=== PATIENT | male | born 1985 | race African-American/Black ===

== ENCOUNTER 2018-03-16 16:47 | Inpatient (IN) ==
[2018-03-16] MEDS ORDERED: ONDANSETRON 4 MG/2 ML VIAL IV STA (17:15)
[2018-03-16] MEDS ORDERED: ALUM/MAG/SIMETH/LIDO VISC 1:1 30 ML BOTTLE PO STA (17:15)
[2018-03-16] MEDS ORDERED: PANTOPRAZOLE 40 MG VIAL IV STA (17:15)
[2018-03-16 18:12] LABS: Basophils # 0.1 10*3/uL (0.0-0.2); Eosinophils # 0.3 10*3/uL (0.0-0.87); Eosinophils % 2.2 % (0.00-10.9); Hematocrit 40.8 VOL% (42.0-52.0); Hemoglobin 13.4 GM/DL (14.0-18.0); Immature Granulocytes % 0.6 %; Immature Granulocytes Absolute 0.08 #; Lymphocytes # 4.5 10*3/uL (1.4-4.0); Mean Corpuscular HGB Conc 32.8 GM/DL (32-36); Mean Corpuscular Hemoglobin 31 PG (27-34); Mean Platelet Volume 10.4 FL (9.6-12.0); Monocytes # 0.6 10*3/uL (0.11-0.8); Monocytes % 4.8 % (1.7-12.7); NRBC # 0.02 10*3/uL; Neutrophils # 7.2 10*3/uL (1.4-7.4); Neutrophils % 56.4 % (38.7-73.9); Platelet Count 273 T/CUMM (130-400); Red Blood Count 4.34 MC/CUMM (3.8-5.5); Red Cell Distribution Width 16.4 % (9.3-17.3); White Blood Count 12.8 T/CUMM (4-12)
[2018-03-16 18:36] LABS: Albumin 3.5 G/DL (3.4-5.0); Calcium 9.2 MG/DL (8.5-10.1); Osmolality,Calculated 282.3 MOS/KG (273-304); Potassium 4.3 MMOL/L (3.5-5.1); Total Protein 7.1 G/DL (6.4-8.3)
[2018-03-16] MEDS ORDERED: traZODone 50 MG TABLET PO PRN (19:04)
[2018-03-16] MEDS ORDERED: ONDANSETRON 4 MG/2 ML VIAL IV PRN (19:04)
[2018-03-16] MEDS ORDERED: ACETAMINOPHEN 325 MG TABLET PO PRN (19:04)
[2018-03-16] MEDS ORDERED: NICOTINE 21 MG/24 HR PATCH TRANSDERM PRN (19:04)
[2018-03-16] MEDS ORDERED: ENOXAPARIN 30 MG/0.3 ML SYRINGE SUBCUT SCH (19:30)
[2018-03-16] MEDS: MORPHINE 4 MG/1 ML VIAL IV PRN ×2 (20:30→23:25)
[2018-03-16] MEDS: SODIUM CHLORIDE 0.9% 1,000 ML IV SCH (20:33)
[2018-03-16] MEDS ORDERED: PANTOPRAZOLE 40 MG TABLET PO SCH (21:00)
[2018-03-16] MEDS ORDERED: HYDROmorphone 2 MG/1 ML VIAL IV ONE (22:14)
[2018-03-16] MEDS: PANTOPRAZOLE 40 MG VIAL IV SCH (22:31)
[2018-03-17] MEDS: MORPHINE 4 MG/1 ML VIAL IV PRN ×5 (03:29→20:27)
[2018-03-17 05:12] LABS: Basophils # 0.1 10*3/uL (0.0-0.2); Basophils % 0.6 % (0.0-0.8); Eosinophils # 0.2 10*3/uL (0.0-0.87); Eosinophils % 1.8 % (0.00-10.9); Hematocrit 37.6 VOL% (42.0-52.0); Hemoglobin 12.7 GM/DL (14.0-18.0); Immature Granulocytes % 0.5 %; Immature Granulocytes Absolute 0.06 #; Lymphocytes # 4.5 10*3/uL (1.4-4.0); Lymphocytes % 39.5 % (21.2-54.2); Mean Corpuscular HGB Conc 33.8 GM/DL (32-36); Mean Corpuscular Hemoglobin 32 PG (27-34); Mean Corpuscular Volume 93.5 FL (87-102); Mean Platelet Volume 10.9 FL (9.6-12.0); Monocytes # 0.6 10*3/uL (0.11-0.8); NRBC # 0.02 10*3/uL; Neutrophils % 52.6 % (38.7-73.9); Platelet Count 246 T/CUMM (130-400); Red Blood Count 4.02 MC/CUMM (3.8-5.5); Red Cell Distribution Width 16.5 % (9.3-17.3); White Blood Count 11.5 T/CUMM (4-12)
[2018-03-17 05:54] LABS: Calcium 8.6 MG/DL (8.5-10.1); Potassium 4.8 MMOL/L (3.5-5.1)
[2018-03-17] MEDS: PANTOPRAZOLE 40 MG VIAL IV SCH ×2 (08:06→20:29)
[2018-03-17] MEDS: LOSARTAN 25 MG TABLET PO SCH (08:07)
[2018-03-17] MEDS: METOPROLOL TARTRATE 50 MG TABLET PO SCH (08:08)
[2018-03-17] MEDS ORDERED: FUROSEMIDE 40 MG TABLET PO SCH (09:00)
[2018-03-17] MEDS: SODIUM CHLORIDE 0.9% 1,000 ML IV SCH (10:10)
[2018-03-17] MEDS: MONTELUKAST 10 MG TABLET PO SCH (10:15)
[2018-03-17] MEDS: IPRATROPIUM 500 MCG/2.5 ML NEB RESP TX SCH ×3 (10:32→20:05)
[2018-03-17] MEDS: MEROPENEM 1,000 MG in SODIUM CHLORIDE 0.9% 100 ML IV SCH ×2 (11:35→19:30)
[2018-03-17 12:24] LABS: Hepatitis A Ab IgM Quant 0.06 Index; Hepatitis A Ab IgM Result Negative (Negative); Hepatitis B Core IgM Quant 0.08 Index; Hepatitis B Core IgM Result Negative (Negative); Hepatitis B Surface Ag Result Negative (Negative); Hepatitis C Virus Ab Result Negative (Negative)
[2018-03-17 13:41] LABS: % Iron Saturation 30.4 % (18-50); Ferritin 224.4 ng/ml (26-388)
[2018-03-17] MEDS ORDERED: HYDROmorphone 2 MG/1 ML VIAL IV ONE (22:12)
[2018-03-18] MEDS: IPRATROPIUM 500 MCG/2.5 ML NEB RESP TX SCH ×4 (00:36→18:55)
[2018-03-18 02:35] LABS: Barbiturates Screen,Urine Negative (Negative); Benzodiazepines Screen,Urine Negative (Negative); Cannabinoid Screen,Urine Negative (Negative); Opiate Screen,Urine Positive (Negative); Phencyclidine Screen,Urine Negative (Negative)
[2018-03-18] MEDS: MEROPENEM 1,000 MG in SODIUM CHLORIDE 0.9% 100 ML IV SCH ×3 (03:29→18:22)
[2018-03-18] MEDS: MORPHINE 4 MG/1 ML VIAL IV PRN ×4 (03:31→21:08)
[2018-03-18] MEDS: SODIUM CHLORIDE 0.9% 1,000 ML IV SCH ×2 (03:31→14:17)
[2018-03-18 05:55] LABS: Calcium 8.7 MG/DL (8.5-10.1); Osmolality,Calculated 283.1 MOS/KG (273-304); Potassium 4.4 MMOL/L (3.5-5.1)
[2018-03-18] MEDS: MONTELUKAST 10 MG TABLET PO SCH (08:55)
[2018-03-18] MEDS: LOSARTAN 25 MG TABLET PO SCH (08:55)
[2018-03-18] MEDS: METOPROLOL TARTRATE 50 MG TABLET PO SCH (08:55)
[2018-03-18 10:54] LABS: Basophils # 0.1 10*3/uL (0.0-0.2); Basophils % 0.6 % (0.0-0.8); Eosinophils # 0.2 10*3/uL (0.0-0.87); Eosinophils % 1.7 % (0.00-10.9); Hematocrit 37.4 VOL% (42.0-52.0); Hemoglobin 12.5 GM/DL (14.0-18.0); Immature Granulocytes % 0.5 %; Immature Granulocytes Absolute 0.06 #; Lymphocytes % 24.2 % (21.2-54.2); Mean Corpuscular HGB Conc 33.4 GM/DL (32-36); Mean Corpuscular Hemoglobin 31 PG (27-34); Mean Corpuscular Volume 93.3 FL (87-102); Mean Platelet Volume 11.1 FL (9.6-12.0); Monocytes # 0.6 10*3/uL (0.11-0.8); Monocytes % 4.5 % (1.7-12.7); NRBC # 0.02 10*3/uL; Neutrophils # 8.4 10*3/uL (1.4-7.4); Neutrophils % 68.5 % (38.7-73.9); Platelet Count 218 T/CUMM (130-400); Red Blood Count 4.01 MC/CUMM (3.8-5.5); Red Cell Distribution Width 16.5 % (9.3-17.3); White Blood Count 12.3 T/CUMM (4-12)
[2018-03-18] MEDS: PANTOPRAZOLE 40 MG VIAL IV SCH ×2 (11:04→21:08)
[2018-03-18] MEDS ORDERED: PROPOFOL 200 MG/20 ML VIAL IV ONE (11:59)
[2018-03-18] MEDS ORDERED: ETOMIDATE 20 MG/10 ML VIAL IV ONE (11:59)
[2018-03-18] MEDS ORDERED: LIDOCAINE 1% 5 ML VIAL ONE (11:59)
[2018-03-18] MEDS ORDERED: ALBUTEROL 2.5 MG/3 ML NEB RESP TX PRN (21:34)
[2018-03-18] MEDS: HYDROmorphone 2 MG/1 ML VIAL IV PRN (22:03)
[2018-03-19] MEDS: IPRATROPIUM 500 MCG/2.5 ML NEB RESP TX SCH ×4 (00:38→19:55)
[2018-03-19] MEDS: HYDROmorphone 2 MG/1 ML VIAL IV PRN ×5 (02:20→20:41)
[2018-03-19] MEDS: MEROPENEM 1,000 MG in SODIUM CHLORIDE 0.9% 100 ML IV SCH ×3 (03:33→18:17)
[2018-03-19] MEDS: SODIUM CHLORIDE 0.9% 1,000 ML IV SCH ×2 (05:20→20:42)
[2018-03-19 05:58] LABS: Basophils # 0.1 10*3/uL (0.0-0.2); Basophils % 0.6 % (0.0-0.8); Eosinophils # 0.2 10*3/uL (0.0-0.87); Eosinophils % 1.6 % (0.00-10.9); Hematocrit 37.5 VOL% (42.0-52.0); Hemoglobin 12.3 GM/DL (14.0-18.0); Immature Granulocytes % 0.6 %; Immature Granulocytes Absolute 0.08 #; Lymphocytes # 3.5 10*3/uL (1.4-4.0); Lymphocytes % 25.5 % (21.2-54.2); Mean Corpuscular HGB Conc 32.8 GM/DL (32-36); Mean Corpuscular Hemoglobin 31 PG (27-34); Mean Corpuscular Volume 94.5 FL (87-102); Mean Platelet Volume 10.9 FL (9.6-12.0); Monocytes # 0.6 10*3/uL (0.11-0.8); Monocytes % 4.4 % (1.7-12.7); Neutrophils # 9.2 10*3/uL (1.4-7.4); Neutrophils % 67.3 % (38.7-73.9); Platelet Count 217 T/CUMM (130-400); Red Blood Count 3.97 MC/CUMM (3.8-5.5); Red Cell Distribution Width 16.7 % (9.3-17.3); White Blood Count 13.6 T/CUMM (4-12)
[2018-03-19 06:37] LABS: Albumin 3.1 G/DL (3.4-5.0); Bilirubin,Total 1.3 MG/DL (0.2-1.0); Calcium 8.5 MG/DL (8.5-10.1); Osmolality,Calculated 285.8 MOS/KG (273-304); Potassium 4.5 MMOL/L (3.5-5.1); Total Protein 6.2 G/DL (6.4-8.3)
[2018-03-19] MEDS: LOSARTAN 25 MG TABLET PO SCH (08:39)
[2018-03-19] MEDS: METOPROLOL TARTRATE 50 MG TABLET PO SCH (08:39)
[2018-03-19] MEDS: MONTELUKAST 10 MG TABLET PO SCH (08:39)
[2018-03-19] MEDS: PANTOPRAZOLE 40 MG VIAL IV SCH ×2 (08:41→20:44)
[2018-03-19] MEDS ORDERED: MORPHINE 4 MG/1 ML VIAL IV PRN (09:37)
[2018-03-20] MEDS: IPRATROPIUM 500 MCG/2.5 ML NEB RESP TX SCH ×2 (01:13→07:29)
[2018-03-20] MEDS: HYDROmorphone 2 MG/1 ML VIAL IV PRN ×2 (01:43→05:44)
[2018-03-20] MEDS: MEROPENEM 1,000 MG in SODIUM CHLORIDE 0.9% 100 ML IV SCH ×2 (03:07→10:25)
[2018-03-20 04:43] LABS: Basophils # 0.1 10*3/uL (0.0-0.2); Basophils % 0.7 % (0.0-0.8); Eosinophils # 0.2 10*3/uL (0.0-0.87); Eosinophils % 2.1 % (0.00-10.9); Hematocrit 36.5 VOL% (42.0-52.0); Hemoglobin 11.7 GM/DL (14.0-18.0); Immature Granulocytes % 0.4 %; Immature Granulocytes Absolute 0.05 #; Lymphocytes # 3.3 10*3/uL (1.4-4.0); Lymphocytes % 28.8 % (21.2-54.2); Mean Corpuscular HGB Conc 32.1 GM/DL (32-36); Mean Corpuscular Hemoglobin 31 PG (27-34); Mean Corpuscular Volume 96.8 FL (87-102); Mean Platelet Volume 11.4 FL (9.6-12.0); Monocytes # 0.6 10*3/uL (0.11-0.8); Monocytes % 5.3 % (1.7-12.7); NRBC # 0.02 10*3/uL; Neutrophils # 7.2 10*3/uL (1.4-7.4); Neutrophils % 62.7 % (38.7-73.9); Platelet Count 209 T/CUMM (130-400); Red Blood Count 3.77 MC/CUMM (3.8-5.5); Red Cell Distribution Width 16.8 % (9.3-17.3); White Blood Count 11.5 T/CUMM (4-12)
[2018-03-20 05:14] LABS: Albumin 3.1 G/DL (3.4-5.0); Bilirubin,Total 1.8 MG/DL (0.2-1.0); Calcium 8.7 MG/DL (8.5-10.1); Osmolality,Calculated 284.8 MOS/KG (273-304); Potassium 4.2 MMOL/L (3.5-5.1); Total Protein 6.2 G/DL (6.4-8.3)
[2018-03-20 07:49] VITALS: BP 112/92
[2018-03-20] MEDS ORDERED: FUROSEMIDE 40 MG/4 ML VIAL IV ONE (08:15)
[2018-03-20] MEDS ORDERED: FLUCONAZOLE INJ 200 MG in PREMIX 1 EACH IV SCH (08:30)
[2018-03-20] MEDS: METOPROLOL TARTRATE 50 MG TABLET PO SCH (08:41)
[2018-03-20] MEDS: PANTOPRAZOLE 40 MG VIAL IV SCH (08:41)
[2018-03-20] MEDS: MONTELUKAST 10 MG TABLET PO SCH (08:41)
[2018-03-20] MEDS: LOSARTAN 25 MG TABLET PO SCH (08:41)
== END 2018-03-20 10:45 | disposition home or self-care (01) | DRG 241 ==
LOC: N.ED 16:47 → N.EDINP 19:04 → N.3E 19:54
PROVIDERS: ADMIT Internal Medicine Geriatric Medicine; ATTEND Internal Medicine Geriatric Medicine

== ENCOUNTER 2018-04-06 13:21 | Inpatient (IN) ==
[2018-04-06] MEDS ORDERED: ONDANSETRON 4 MG/2 ML VIAL IV STA (14:23)
[2018-04-06] MEDS ORDERED: PANTOPRAZOLE 40 MG VIAL IV STA (14:23)
[2018-04-06] MEDS ORDERED: SODIUM CHLORIDE 0.9% 1,000 ML IV STA (14:23)
[2018-04-06] MEDS ORDERED: METOCLOPRAMIDE 10 MG/2 ML VIAL IV STA (14:23)
[2018-04-06] MEDS ORDERED: ONDANSETRON 4 MG/2 ML VIAL ONE (14:35)
[2018-04-06] MEDS ORDERED: PANTOPRAZOLE 40 MG VIAL IV ONE (14:35)
[2018-04-06] MEDS ORDERED: METOCLOPRAMIDE 10 MG/2 ML VIAL ONE (14:35)
[2018-04-06 14:42] LABS: Basophils # 0.2 10*3/uL (0.0-0.2); Basophils % 1.6 % (0.0-0.8); Eosinophils # 0.4 10*3/uL (0.0-0.87); Hematocrit 45.5 VOL% (42.0-52.0); Hemoglobin 14.7 GM/DL (14.0-18.0); Immature Granulocytes % 0.4 %; Immature Granulocytes Absolute 0.04 #; Lymphocytes # 4.8 10*3/uL (1.4-4.0); Lymphocytes % 44.9 % (21.2-54.2); Mean Corpuscular HGB Conc 32.3 GM/DL (32-36); Mean Corpuscular Hemoglobin 30 PG (27-34); Mean Corpuscular Volume 92.3 FL (87-102); Mean Platelet Volume 11.8 FL (9.6-12.0); Monocytes # 0.5 10*3/uL (0.11-0.8); Monocytes % 4.6 % (1.7-12.7); Neutrophils # 4.7 10*3/uL (1.4-7.4); Neutrophils % 44.5 % (38.7-73.9); Platelet Count 257 T/CUMM (130-400); Red Blood Count 4.93 MC/CUMM (3.8-5.5); Red Cell Distribution Width 15.9 % (9.3-17.3); White Blood Count 10.6 T/CUMM (4-12)
[2018-04-06 15:11] LABS: Albumin 3.9 G/DL (3.4-5.0); Bilirubin,Total 2.7 MG/DL (0.2-1.0); Calcium 9.1 MG/DL (8.5-10.1); Osmolality,Calculated 281.4 MOS/KG (273-304); Potassium 3.8 MMOL/L (3.5-5.1)
[2018-04-06] MEDS: HYDROmorphone 2 MG/1 ML VIAL IV PRN ×2 (17:14→21:02)
[2018-04-06] MEDS: LACTOBACILLUS ACIDOPHILUS/BULGARICUS CAPLET PO SCH (17:20)
[2018-04-06] MEDS: DICYCLOMINE 10 MG CAPSULE PO SCH (21:02)
[2018-04-06] MEDS: PANTOPRAZOLE 40 MG TABLET PO SCH (21:02)
[2018-04-06] MEDS: ONDANSETRON 4 MG/2 ML VIAL IV PRN (21:12)
[2018-04-07] MEDS: HYDROmorphone 2 MG/1 ML VIAL IV PRN ×5 (01:09→23:18)
[2018-04-07 03:57] LABS: Basophils # 0.1 10*3/uL (0.0-0.2); Eosinophils # 0.2 10*3/uL (0.0-0.87); Eosinophils % 2.4 % (0.00-10.9); Hematocrit 39.7 VOL% (42.0-52.0); Hemoglobin 12.7 GM/DL (14.0-18.0); Immature Granulocytes % 0.2 %; Immature Granulocytes Absolute 0.02 #; Lymphocytes # 4.6 10*3/uL (1.4-4.0); Lymphocytes % 49.1 % (21.2-54.2); Mean Corpuscular Hemoglobin 30 PG (27-34); Mean Corpuscular Volume 92.3 FL (87-102); Mean Platelet Volume 12.2 FL (9.6-12.0); Monocytes # 0.5 10*3/uL (0.11-0.8); Neutrophils % 42.3 % (38.7-73.9); Platelet Count 230 T/CUMM (130-400); Red Cell Distribution Width 15.8 % (9.3-17.3); White Blood Count 9.3 T/CUMM (4-12)
[2018-04-07 04:28] LABS: Albumin 3.4 G/DL (3.4-5.0); Calcium 8.6 MG/DL (8.5-10.1); Osmolality,Calculated 278.5 MOS/KG (273-304); Potassium 4.5 MMOL/L (3.5-5.1); Total Protein 6.6 G/DL (6.4-8.3)
[2018-04-07] MEDS: METOPROLOL TARTRATE 50 MG TABLET PO SCH (08:42)
[2018-04-07] MEDS: ONDANSETRON 4 MG/2 ML VIAL IV PRN ×2 (08:44→14:26)
[2018-04-07] MEDS: LACTOBACILLUS ACIDOPHILUS/BULGARICUS CAPLET PO SCH ×2 (08:49→14:31)
[2018-04-07] MEDS: DICYCLOMINE 10 MG CAPSULE PO SCH ×3 (08:49→20:21)
[2018-04-07] MEDS: PANTOPRAZOLE 40 MG TABLET PO SCH ×3 (08:50→20:21)
[2018-04-07] MEDS: SODIUM CHLORIDE 0.9% 1,000 ML IV SCH ×2 (13:13→23:18)
[2018-04-07 14:10] LABS: Hepatitis A Ab IgM Quant 0.11 Index; Hepatitis A Ab IgM Result Negative (Negative); Hepatitis B Core IgM Quant < 0.05 Index; Hepatitis B Core IgM Result Negative (Negative); Hepatitis B Surface Ag Quant < 0.10 Index; Hepatitis B Surface Ag Result Negative (Negative); Hepatitis C Virus Ab Quant 0.13 Index; Hepatitis C Virus Ab Result Negative (Negative)
[2018-04-07 20:16] LABS: Apearance,Urine Slightly Hazy (Clear); Bilirubin,Urine Negative (Negative); Blood, Urine Negative (Negative); Glucose,Urine (UA) Negative (Negative); Hyaline Casts,Urine 210 /LPF (0-3); Ketones,Urine Negative (Negative); Mucus,Urine Many /LPF (Occasional); Nitrite,Urine Negative (Negative); Protein,Urine 30 MG/DL; Squamous Epithelial Cell,Urine Occasional /HPF (0-10); Urine Color Amber (Yellow); WBC,Urine 5 /HPF (0-6)
[2018-04-08] MEDS: ONDANSETRON 4 MG/2 ML VIAL IV PRN ×5 (05:44→23:48)
[2018-04-08] MEDS: HYDROmorphone 2 MG/1 ML VIAL IV PRN ×5 (05:46→23:47)
[2018-04-08] MEDS: SODIUM CHLORIDE 0.9% 1,000 ML IV SCH ×2 (06:05→16:27)
[2018-04-08 09:47] LABS: Basophils # 0.1 10*3/uL (0.0-0.2); Basophils % 1.1 % (0.0-0.8); Eosinophils # 0.3 10*3/uL (0.0-0.87); Eosinophils % 2.4 % (0.00-10.9); Hematocrit 41.4 VOL% (42.0-52.0); Hemoglobin 12.7 GM/DL (14.0-18.0); Immature Granulocytes % 0.2 %; Immature Granulocytes Absolute 0.02 #; Lymphocytes # 5.5 10*3/uL (1.4-4.0); Lymphocytes % 49.9 % (21.2-54.2); Mean Corpuscular HGB Conc 30.7 GM/DL (32-36); Mean Corpuscular Hemoglobin 29 PG (27-34); Mean Corpuscular Volume 95.4 FL (87-102); Mean Platelet Volume 11.6 FL (9.6-12.0); Monocytes # 0.7 10*3/uL (0.11-0.8); Monocytes % 6.5 % (1.7-12.7); NRBC # 0.03 10*3/uL; Neutrophils # 4.4 10*3/uL (1.4-7.4); Neutrophils % 39.9 % (38.7-73.9); Platelet Count 216 T/CUMM (130-400); Red Blood Count 4.34 MC/CUMM (3.8-5.5); Red Cell Distribution Width 15.9 % (9.3-17.3); White Blood Count 11.1 T/CUMM (4-12)
[2018-04-08] MEDS: PANTOPRAZOLE 40 MG TABLET PO SCH ×2 (10:08→21:17)
[2018-04-08] MEDS: METOPROLOL TARTRATE 50 MG TABLET PO SCH (10:08)
[2018-04-08] MEDS: LACTOBACILLUS ACIDOPHILUS/BULGARICUS CAPLET PO SCH (10:08)
[2018-04-08] MEDS: DICYCLOMINE 10 MG CAPSULE PO SCH ×3 (10:08→21:17)
[2018-04-08 10:16] LABS: Albumin 3.2 G/DL (3.4-5.0); Bilirubin,Total 2.3 MG/DL (0.2-1.0); Calcium 8.4 MG/DL (8.5-10.1); Osmolality,Calculated 280.5 MOS/KG (273-304); Potassium 4.2 MMOL/L (3.5-5.1); Total Protein 6.7 G/DL (6.4-8.3)
[2018-04-08] MEDS: SUCRALFATE 1 GM TABLET PO SCH ×2 (17:34→21:17)
[2018-04-09] MEDS: SODIUM CHLORIDE 0.9% 1,000 ML IV SCH ×3 (02:49→15:20)
[2018-04-09 06:07] LABS: Basophils # 0.1 10*3/uL (0.0-0.2); Basophils % 1.2 % (0.0-0.8); Eosinophils # 0.3 10*3/uL (0.0-0.87); Eosinophils % 2.5 % (0.00-10.9); Hematocrit 38.3 VOL% (42.0-52.0); Hemoglobin 12.3 GM/DL (14.0-18.0); Immature Granulocytes % 0.5 %; Immature Granulocytes Absolute 0.05 #; Lymphocytes # 4.5 10*3/uL (1.4-4.0); Lymphocytes % 42.1 % (21.2-54.2); Mean Corpuscular HGB Conc 32.1 GM/DL (32-36); Mean Corpuscular Hemoglobin 30 PG (27-34); Mean Corpuscular Volume 93.9 FL (87-102); Mean Platelet Volume 11.9 FL (9.6-12.0); Monocytes # 0.8 10*3/uL (0.11-0.8); Monocytes % 7.8 % (1.7-12.7); NRBC # 0.04 10*3/uL; Neutrophils # 4.9 10*3/uL (1.4-7.4); Neutrophils % 45.9 % (38.7-73.9); Platelet Count 211 T/CUMM (130-400); Red Blood Count 4.08 MC/CUMM (3.8-5.5); Red Cell Distribution Width 15.8 % (9.3-17.3); White Blood Count 10.7 T/CUMM (4-12)
[2018-04-09 06:30] LABS: Calcium 8.2 MG/DL (8.5-10.1); Osmolality,Calculated 277.8 MOS/KG (273-304); Potassium 4.4 MMOL/L (3.5-5.1); Total Protein 6.2 G/DL (6.4-8.3)
[2018-04-09] MEDS: HYDROmorphone 2 MG/1 ML VIAL IV PRN ×4 (06:39→21:21)
[2018-04-09] MEDS: ONDANSETRON 4 MG/2 ML VIAL IV PRN ×4 (06:40→21:21)
[2018-04-09 08:13] LABS: Risk Ratio 5.92
[2018-04-09 08:56] LABS: HIV Antigen/Antibody Result Nonreactive (Nonreactive)
[2018-04-09] MEDS: METOPROLOL TARTRATE 50 MG TABLET PO SCH (10:00)
[2018-04-09] MEDS: LACTOBACILLUS ACIDOPHILUS/BULGARICUS CAPLET PO SCH (10:00)
[2018-04-09] MEDS: SUCRALFATE 1 GM TABLET PO SCH ×4 (10:00→21:23)
[2018-04-09] MEDS: DICYCLOMINE 10 MG CAPSULE PO SCH ×3 (10:00→21:23)
[2018-04-09] MEDS: PANTOPRAZOLE 40 MG TABLET PO SCH (10:00)
[2018-04-09 12:00] LABS: % Iron Saturation 7.4 % (18-50); Ferritin 62.1 ng/ml (26-388)
[2018-04-09 13:15] LABS: Troponin I < 0.015 NG/ML (0.00-0.045)
[2018-04-09] MEDS ORDERED: FUROSEMIDE 40 MG/4 ML VIAL IV ONE (13:56)
[2018-04-09 13:57] LABS: Apearance,Urine CLEAR (Clear); Bilirubin,Urine Negative (Negative); Blood, Urine Negative (Negative); Glucose,Urine (UA) Negative (Negative); Hyaline Casts,Urine 23 /LPF (0-3); Ketones,Urine Negative (Negative); Mucus,Urine Occasional /LPF (Occasional); Nitrite,Urine Negative (Negative); Protein,Urine 30 MG/DL; RBC,Urine 1 /HPF (0-4); Squamous Epithelial Cell,Urine Occasional /HPF (0-10); Urine Color Amber (Yellow); Urine Specific Gravity 1.016 (1.001-1.035); WBC,Urine 2 /HPF (0-6)
[2018-04-09 14:38] LABS: Barbiturates Screen,Urine Negative (Negative); Benzodiazepines Screen,Urine Negative (Negative); Cannabinoid Screen,Urine Negative (Negative); Opiate Screen,Urine Positive (Negative); Phencyclidine Screen,Urine Negative (Negative)
[2018-04-09 15:20] LABS: INR 1.7; PT Patient Result 17.3 SECS
[2018-04-09] MEDS: PANTOPRAZOLE 40 MG VIAL IV SCH (21:19)
[2018-04-10] MEDS: SODIUM CHLORIDE 0.9% 1,000 ML IV SCH (01:25)
[2018-04-10 06:24] LABS: Basophils # 0.1 10*3/uL (0.0-0.2); Basophils % 1.1 % (0.0-0.8); Eosinophils # 0.3 10*3/uL (0.0-0.87); Eosinophils % 2.9 % (0.00-10.9); Hematocrit 39.6 VOL% (42.0-52.0); Hemoglobin 12.6 GM/DL (14.0-18.0); Immature Granulocytes % 0.3 %; Immature Granulocytes Absolute 0.03 #; Lymphocytes # 4.8 10*3/uL (1.4-4.0); Lymphocytes % 44.6 % (21.2-54.2); Mean Corpuscular HGB Conc 31.8 GM/DL (32-36); Mean Corpuscular Hemoglobin 30 PG (27-34); Mean Corpuscular Volume 93.2 FL (87-102); Mean Platelet Volume 12.1 FL (9.6-12.0); Monocytes # 0.9 10*3/uL (0.11-0.8); NRBC # 0.02 10*3/uL; Neutrophils # 4.7 10*3/uL (1.4-7.4); Neutrophils % 43.1 % (38.7-73.9); Platelet Count 219 T/CUMM (130-400); Red Blood Count 4.25 MC/CUMM (3.8-5.5); White Blood Count 10.8 T/CUMM (4-12)
[2018-04-10 06:38] LABS: INR 1.5; PT Patient Result 16.1 SECS; Partial Thromboplastin Time 29.6 SECS (0-40)
[2018-04-10 06:55] LABS: Albumin 3.2 G/DL (3.4-5.0); Bilirubin,Total 2.6 MG/DL (0.2-1.0); Calcium 8.6 MG/DL (8.5-10.1); Osmolality,Calculated 279.5 MOS/KG (273-304); Potassium 3.4 MMOL/L (3.5-5.1); Total Protein 6.1 G/DL (6.4-8.3)
[2018-04-10 06:56] LABS: Troponin I < 0.015 NG/ML (0.00-0.045)
[2018-04-10] MEDS: HYDROmorphone 2 MG/1 ML VIAL IV PRN ×4 (07:49→20:30)
[2018-04-10] MEDS: LACTOBACILLUS ACIDOPHILUS/BULGARICUS CAPLET PO SCH (08:09)
[2018-04-10] MEDS: SUCRALFATE 1 GM TABLET PO SCH ×4 (08:09→20:32)
[2018-04-10] MEDS: DICYCLOMINE 10 MG CAPSULE PO SCH ×3 (08:09→20:32)
[2018-04-10] MEDS: PANTOPRAZOLE 40 MG VIAL IV SCH ×2 (08:09→20:28)
[2018-04-10] MEDS: METOPROLOL TARTRATE 50 MG TABLET PO SCH (08:09)
[2018-04-10] MEDS: ONDANSETRON 4 MG/2 ML VIAL IV PRN ×3 (08:12→20:31)
[2018-04-10] MEDS: POTASSIUM CHLORIDE 20 MEQ TABLET PO PRN ×3 (09:23→14:23)
[2018-04-10] MEDS: SODIUM BICARB INJ 50 MEQ, POTASSIUM CHLORIDE INJ 20 MEQ in DEXTROSE 5% NACL 0.45% 1,000 ML IV SCH ×2 (11:06→21:05)
[2018-04-11 04:16] LABS: Hematocrit 37.3 VOL% (42.0-52.0); Hemoglobin 11.8 GM/DL (14.0-18.0)
[2018-04-11 04:34] LABS: Calcium 8.1 MG/DL (8.5-10.1); Osmolality,Calculated 282.4 MOS/KG (273-304); Potassium 4.1 MMOL/L (3.5-5.1)
[2018-04-11] MEDS: SODIUM BICARB INJ 50 MEQ, POTASSIUM CHLORIDE INJ 20 MEQ in DEXTROSE 5% NACL 0.45% 1,000 ML IV SCH (07:13)
[2018-04-11] MEDS: HYDROmorphone 2 MG/1 ML VIAL IV PRN ×3 (08:23→20:58)
[2018-04-11] MEDS: ONDANSETRON 4 MG/2 ML VIAL IV PRN (08:25)
[2018-04-11] MEDS: DICYCLOMINE 10 MG CAPSULE PO SCH ×3 (08:30→21:03)
[2018-04-11] MEDS: LACTOBACILLUS ACIDOPHILUS/BULGARICUS CAPLET PO SCH (08:30)
[2018-04-11] MEDS: SUCRALFATE 1 GM TABLET PO SCH ×4 (08:30→21:04)
[2018-04-11] MEDS: METOPROLOL TARTRATE 50 MG TABLET PO SCH (08:30)
[2018-04-11] MEDS ORDERED: ETOMIDATE 20 MG/10 ML VIAL IV ONE (09:00)
[2018-04-11] MEDS ORDERED: PROPOFOL 200 MG/20 ML VIAL IV ONE (09:00)
[2018-04-11] MEDS ORDERED: LIDOCAINE 100 MG/5 ML SYRINGE ONE (09:00)
[2018-04-11] MEDS: PANTOPRAZOLE 40 MG VIAL IV SCH ×2 (09:30→21:04)
[2018-04-11 09:50] LABS: Albumin 2.9 G/DL (3.4-5.0); Bilirubin,Direct 1.12 MG/DL (0.0-0.20); Bilirubin,Indirect 1.2 MG/DL (0.0-1.0); Bilirubin,Total 2.3 MG/DL (0.2-1.0); Total Protein 5.8 G/DL (6.4-8.3)
[2018-04-11] MEDS ORDERED: DIAZEPAM 5 MG TABLET PO ONE (13:00)
[2018-04-12] MEDS: SODIUM BICARB INJ 50 MEQ, POTASSIUM CHLORIDE INJ 20 MEQ in DEXTROSE 5% NACL 0.45% 1,000 ML IV SCH ×2 (00:55→15:12)
[2018-04-12] MEDS: HYDROmorphone 2 MG/1 ML VIAL IV PRN ×3 (01:01→10:23)
[2018-04-12 05:46] LABS: Basophils # 0.1 10*3/uL (0.0-0.2); Basophils % 1.1 % (0.0-0.8); Eosinophils # 0.4 10*3/uL (0.0-0.87); Eosinophils % 3.7 % (0.00-10.9); Hematocrit 38.2 VOL% (42.0-52.0); Immature Granulocytes % 0.3 %; Immature Granulocytes Absolute 0.03 #; Lymphocytes # 4.4 10*3/uL (1.4-4.0); Lymphocytes % 46.5 % (21.2-54.2); Mean Corpuscular HGB Conc 31.4 GM/DL (32-36); Mean Corpuscular Hemoglobin 30 PG (27-34); Mean Corpuscular Volume 93.9 FL (87-102); Mean Platelet Volume 11.8 FL (9.6-12.0); Monocytes # 0.7 10*3/uL (0.11-0.8); Monocytes % 7.2 % (1.7-12.7); NRBC # 0.04 10*3/uL; Neutrophils # 3.9 10*3/uL (1.4-7.4); Neutrophils % 41.2 % (38.7-73.9); Platelet Count 215 T/CUMM (130-400); Red Blood Count 4.07 MC/CUMM (3.8-5.5); White Blood Count 9.4 T/CUMM (4-12)
[2018-04-12 06:10] LABS: Calcium 8.4 MG/DL (8.5-10.1)
[2018-04-12 06:11] LABS: Bilirubin,Direct 1.1 MG/DL (0.0-0.20); Bilirubin,Indirect 1.3 MG/DL (0.0-1.0); Bilirubin,Total 2.4 MG/DL (0.2-1.0); Osmolality,Calculated 281.3 MOS/KG (273-304); Potassium 3.9 MMOL/L (3.5-5.1)
[2018-04-12] MEDS: SUCRALFATE 1 GM TABLET PO SCH ×4 (09:02→21:31)
[2018-04-12] MEDS: METOPROLOL TARTRATE 50 MG TABLET PO SCH (09:02)
[2018-04-12] MEDS: DICYCLOMINE 10 MG CAPSULE PO SCH ×3 (09:02→21:31)
[2018-04-12] MEDS: LACTOBACILLUS ACIDOPHILUS/BULGARICUS CAPLET PO SCH (09:02)
[2018-04-12] MEDS: PANTOPRAZOLE 40 MG VIAL IV SCH ×2 (09:16→21:32)
[2018-04-12] MEDS: ONDANSETRON 4 MG/2 ML VIAL IV PRN ×3 (10:25→22:02)
[2018-04-12] MEDS ORDERED: HYDROmorphone 2 MG/1 ML VIAL IV PRN (11:37)
[2018-04-12] MEDS: oxyCODONE ER 10 MG TABLET PO PRN (18:50)
[2018-04-12] MEDS ORDERED: MEPERIDINE 50 MG/1 ML VIAL IV ONE (21:50)
[2018-04-12 22:11] LABS: IgA Serum (MAYO) 117 mg/dL (61 - 356)
[2018-04-13] MEDS: SODIUM BICARB INJ 50 MEQ, POTASSIUM CHLORIDE INJ 20 MEQ in DEXTROSE 5% NACL 0.45% 1,000 ML IV SCH (02:59)
[2018-04-13 05:14] LABS: Basophils # 0.1 10*3/uL (0.0-0.2); Basophils % 0.8 % (0.0-0.8); Eosinophils # 0.4 10*3/uL (0.0-0.87); Eosinophils % 6.1 % (0.00-10.9); Hematocrit 34.2 VOL% (42.0-52.0); Hemoglobin 10.9 GM/DL (14.0-18.0); Immature Granulocytes % 0.3 %; Immature Granulocytes Absolute 0.02 #; Lymphocytes # 3.3 10*3/uL (1.4-4.0); Mean Corpuscular HGB Conc 31.9 GM/DL (32-36); Mean Corpuscular Hemoglobin 30 PG (27-34); Mean Corpuscular Volume 92.4 FL (87-102); Mean Platelet Volume 11.5 FL (9.6-12.0); Monocytes # 0.4 10*3/uL (0.11-0.8); Monocytes % 5.2 % (1.7-12.7); Neutrophils # 2.9 10*3/uL (1.4-7.4); Neutrophils % 41.6 % (38.7-73.9); Platelet Count 194 T/CUMM (130-400); Red Cell Distribution Width 15.9 % (9.3-17.3); White Blood Count 7.1 T/CUMM (4-12)
[2018-04-13 05:31] LABS: Calcium 8.1 MG/DL (8.5-10.1); Osmolality,Calculated 278.4 MOS/KG (273-304); Potassium 3.9 MMOL/L (3.5-5.1)
[2018-04-13 05:33] LABS: Albumin 2.7 G/DL (3.4-5.0); Bilirubin,Direct 1.06 MG/DL (0.0-0.20); Bilirubin,Indirect 1.2 MG/DL (0.0-1.0); Bilirubin,Total 2.3 MG/DL (0.2-1.0); Total Protein 5.7 G/DL (6.4-8.3)
[2018-04-13] MEDS: oxyCODONE ER 10 MG TABLET PO PRN (08:30)
[2018-04-13] MEDS: METOPROLOL TARTRATE 50 MG TABLET PO SCH (08:30)
[2018-04-13] MEDS: LACTOBACILLUS ACIDOPHILUS/BULGARICUS CAPLET PO SCH (08:30)
[2018-04-13] MEDS: SUCRALFATE 1 GM TABLET PO SCH ×2 (08:30→12:06)
[2018-04-13] MEDS: DICYCLOMINE 10 MG CAPSULE PO SCH (08:30)
[2018-04-13] MEDS: PANTOPRAZOLE 40 MG VIAL IV SCH (08:30)
[2018-04-13] MEDS ORDERED: OXYBUTYNIN 5 MG TABLET PO SCH (11:30)
[2018-04-13 12:16] VITALS: BP 109/92
[2018-04-15 05:35] LABS: Tissue Transglutaminase IgA Ab < 1.2 U/mL
== END 2018-04-13 13:01 | disposition home or self-care (01) | DRG 241 ==
LOC: N.ED 13:21 → N.EDINP 15:46 → N.2E 16:45
PROVIDERS: ADMIT Internal Medicine; ATTEND Internal Medicine

== ENCOUNTER 2018-04-16 10:36 | Inpatient (IN) ==
[2018-04-16 12:00] LABS: Basophils # 0.1 10*3/uL (0.0-0.2); Eosinophils # 0.2 10*3/uL (0.0-0.87); Eosinophils % 2.5 % (0.00-10.9); Hematocrit 37.2 VOL% (42.0-52.0); Hemoglobin 12.5 GM/DL (14.0-18.0); Immature Granulocytes % 0.2 %; Immature Granulocytes Absolute 0.02 #; Lymphocytes % 41.3 % (21.2-54.2); Mean Corpuscular HGB Conc 33.6 GM/DL (32-36); Mean Corpuscular Hemoglobin 30 PG (27-34); Mean Corpuscular Volume 89.4 FL (87-102); Mean Platelet Volume 11.7 FL (9.6-12.0); Monocytes # 0.6 10*3/uL (0.11-0.8); Monocytes % 5.7 % (1.7-12.7); Neutrophils # 4.8 10*3/uL (1.4-7.4); Neutrophils % 49.3 % (38.7-73.9); Platelet Count 191 T/CUMM (130-400); Red Blood Count 4.16 MC/CUMM (3.8-5.5); Red Cell Distribution Width 15.9 % (9.3-17.3); White Blood Count 9.7 T/CUMM (4-12)
[2018-04-16 12:12] LABS: INR 1.7; PT Patient Result 17.3 SECS; Partial Thromboplastin Time 26.4 SECS (0-40)
[2018-04-16 12:27] LABS: Albumin 3.1 G/DL (3.4-5.0); Bilirubin,Total 2.7 MG/DL (0.2-1.0); Calcium 8.2 MG/DL (8.5-10.1); Osmolality,Calculated 279.5 MOS/KG (273-304); Potassium 3.5 MMOL/L (3.5-5.1); Total Protein 6.4 G/DL (6.4-8.3)
[2018-04-16] MEDS ORDERED: SODIUM CHLORIDE 0.9% 1,000 ML IV STA (12:35)
[2018-04-16 12:36] LABS: Apearance,Urine Slightly Hazy (Clear); Bilirubin,Urine Negative (Negative); Blood, Urine Negative (Negative); Glucose,Urine (UA) Negative (Negative); Hyaline Casts,Urine 186 /LPF (0-3); Ketones,Urine Negative (Negative); Mucus,Urine Few /LPF (Occasional); Nitrite,Urine Negative (Negative); Protein,Urine 100 MG/DL; RBC,Urine 2 /HPF (0-4); Squamous Epithelial Cell,Urine Occasional /HPF (0-10); Urine Color Amber (Yellow); Urine Specific Gravity 1.014 (1.001-1.035); WBC,Urine 3 /HPF (0-6)
[2018-04-16 12:58] LABS: Barbiturates Screen,Urine Negative (Negative); Benzodiazepines Screen,Urine Positive (Negative); Cannabinoid Screen,Urine Negative (Negative); Opiate Screen,Urine Positive (Negative); Phencyclidine Screen,Urine Negative (Negative)
[2018-04-16] MEDS ORDERED: ALUM/MAG/SIMETH/LIDO VISC 1:1 30 ML BOTTLE PO STA (13:28)
[2018-04-16] MEDS ORDERED: ALUM/MAG/SIMETH/LIDO VISC 1:1 30 ML BOTTLE PO ONE (13:38)
[2018-04-16] MEDS ORDERED: ONDANSETRON 4 MG TABLET PO PRN (14:24)
[2018-04-16] MEDS ORDERED: FUROSEMIDE 40 MG/4 ML VIAL IV ONE (14:37)
[2018-04-16] MEDS: HYDROmorphone 2 MG/1 ML VIAL IV PRN ×2 (15:29→20:20)
[2018-04-16] MEDS: SUCRALFATE 1 GM TABLET PO SCH ×2 (17:34→20:26)
[2018-04-16] MEDS: ONDANSETRON 4 MG/2 ML VIAL IV PRN (17:38)
[2018-04-16] MEDS: OXYBUTYNIN 5 MG TABLET PO SCH (20:26)
[2018-04-16] MEDS: PANTOPRAZOLE 40 MG TABLET PO SCH (20:26)
[2018-04-16] MEDS: NYSTATIN 500,000 UNIT/5 ML UDCUP SWISH/SWAL SCH (20:26)
[2018-04-17] MEDS: HYDROmorphone 2 MG/1 ML VIAL IV PRN ×5 (02:16→21:07)
[2018-04-17 03:46] LABS: Basophils # 0.1 10*3/uL (0.0-0.2); Basophils % 0.9 % (0.0-0.8); Eosinophils # 0.2 10*3/uL (0.0-0.87); Eosinophils % 2.4 % (0.00-10.9); Hematocrit 35.4 VOL% (42.0-52.0); Hemoglobin 11.5 GM/DL (14.0-18.0); Immature Granulocytes % 0.3 %; Immature Granulocytes Absolute 0.03 #; Lymphocytes # 5.9 10*3/uL (1.4-4.0); Lymphocytes % 58.8 % (21.2-54.2); Mean Corpuscular HGB Conc 32.5 GM/DL (32-36); Mean Corpuscular Hemoglobin 29 PG (27-34); Mean Corpuscular Volume 88.7 FL (87-102); Mean Platelet Volume 11.9 FL (9.6-12.0); Monocytes # 0.7 10*3/uL (0.11-0.8); Monocytes % 6.6 % (1.7-12.7); NRBC # 0.02 10*3/uL; Neutrophils # 3.1 10*3/uL (1.4-7.4); Platelet Count 185 T/CUMM (130-400); Red Blood Count 3.99 MC/CUMM (3.8-5.5); Red Cell Distribution Width 16.1 % (9.3-17.3)
[2018-04-17 04:10] LABS: Calcium 8.4 MG/DL (8.5-10.1); Osmolality,Calculated 275.7 MOS/KG (273-304)
[2018-04-17 04:16] LABS: Eosinophils 6 % (0-10); Lymphocytes 50 % (20-55); Nucleated Red Blood Cells 1 (0-5); Polychromasia Few; Segmented Neutrophils 41 % (50-85); Total Cells Counted 100
[2018-04-17 04:17] LABS: Platelet Estimate Adequate
[2018-04-17] MEDS: LACTOBACILLUS ACIDOPHILUS/BULGARICUS CAPLET PO SCH (08:21)
[2018-04-17] MEDS: PANTOPRAZOLE 40 MG TABLET PO SCH ×2 (08:21→20:44)
[2018-04-17] MEDS: NYSTATIN 500,000 UNIT/5 ML UDCUP SWISH/SWAL SCH ×2 (08:21→20:44)
[2018-04-17] MEDS: OXYBUTYNIN 5 MG TABLET PO SCH (08:21)
[2018-04-17] MEDS: SUCRALFATE 1 GM TABLET PO SCH ×4 (08:21→20:44)
[2018-04-17] MEDS: METOPROLOL TARTRATE 50 MG TABLET PO SCH (08:21)
[2018-04-17] MEDS: ONDANSETRON 4 MG/2 ML VIAL IV PRN (08:22)
[2018-04-17] MEDS: FUROSEMIDE 40 MG/4 ML VIAL IV SCH ×2 (08:26→15:58)
[2018-04-17] MEDS ORDERED: PANTOPRAZOLE 40 MG TABLET PO SCH (09:00)
[2018-04-17] MEDS ORDERED: TAMSULOSIN 0.4 MG CAPSULE PO SCH (12:00)
[2018-04-17 13:15] LABS: Apearance,Urine CLEAR (Clear); Bilirubin,Urine Negative (Negative); Blood, Urine Moderate mg/dL (Negative); Glucose,Urine (UA) Negative (Negative); Hyaline Casts,Urine 16 /LPF (0-3); Ketones,Urine Negative (Negative); Mucus,Urine Occasional /LPF (Occasional); Nitrite,Urine Negative (Negative); Protein,Urine Negative; RBC,Urine 4 /HPF (0-4); Urine Color Yellow (Yellow); Urine Specific Gravity 1.008 (1.001-1.035); WBC,Urine 3 /HPF (0-6)
[2018-04-18 04:44] LABS: Basophils # 0.1 10*3/uL (0.0-0.2); Basophils % 1.3 % (0.0-0.8); Eosinophils # 0.3 10*3/uL (0.0-0.87); Eosinophils % 3.4 % (0.00-10.9); Hematocrit 35.6 VOL% (42.0-52.0); Hemoglobin 11.4 GM/DL (14.0-18.0); Immature Granulocytes % 0.1 %; Immature Granulocytes Absolute 0.01 #; Lymphocytes # 4.2 10*3/uL (1.4-4.0); Mean Corpuscular Hemoglobin 29 PG (27-34); Mean Corpuscular Volume 90.1 FL (87-102); Mean Platelet Volume 11.7 FL (9.6-12.0); Monocytes # 0.5 10*3/uL (0.11-0.8); Monocytes % 5.7 % (1.7-12.7); NRBC # 0.02 10*3/uL; Neutrophils # 2.9 10*3/uL (1.4-7.4); Neutrophils % 36.5 % (38.7-73.9); Platelet Count 164 T/CUMM (130-400); Red Blood Count 3.95 MC/CUMM (3.8-5.5); White Blood Count 7.8 T/CUMM (4-12)
[2018-04-18 05:01] LABS: Calcium 8.7 MG/DL (8.5-10.1); Osmolality,Calculated 277.7 MOS/KG (273-304)
[2018-04-18 05:20] LABS: Eosinophils 4 % (0-10); Lymphocytes 56 % (20-55); Platelet Estimate Adequate; Polychromasia Few; Segmented Neutrophils 39 % (50-85); Total Cells Counted 100
[2018-04-18] MEDS: SODIUM CHLORIDE 0.9% 1,000 ML IV SCH ×2 (08:19→18:26)
[2018-04-18] MEDS: SUCRALFATE 1 GM TABLET PO SCH ×4 (08:20→20:53)
[2018-04-18] MEDS: NYSTATIN 500,000 UNIT/5 ML UDCUP SWISH/SWAL SCH ×2 (08:20→20:53)
[2018-04-18] MEDS: METOPROLOL TARTRATE 50 MG TABLET PO SCH (08:20)
[2018-04-18] MEDS: FUROSEMIDE 40 MG/4 ML VIAL IV SCH (08:20)
[2018-04-18] MEDS: PANTOPRAZOLE 40 MG TABLET PO SCH ×2 (08:20→20:53)
[2018-04-18] MEDS: ONDANSETRON 4 MG/2 ML VIAL IV PRN (08:24)
[2018-04-18] MEDS: HYDROmorphone 2 MG/1 ML VIAL IV PRN ×3 (08:25→20:53)
[2018-04-18] MEDS: LACTOBACILLUS ACIDOPHILUS/BULGARICUS CAPLET PO SCH (08:31)
[2018-04-18 10:32] LABS: Creatinine,Urine Random < 13 MG/DL; Total Protein,Urine Random < 5 MG/DL; Urea Nitrogen, Urine Random 76 MG/DL
[2018-04-19] MEDS: HYDROmorphone 2 MG/1 ML VIAL IV PRN ×4 (00:58→20:22)
[2018-04-19 03:41] LABS: Basophils # 0.1 10*3/uL (0.0-0.2); Eosinophils # 0.3 10*3/uL (0.0-0.87); Eosinophils % 4.6 % (0.00-10.9); Hematocrit 35.7 VOL% (42.0-52.0); Hemoglobin 11.7 GM/DL (14.0-18.0); Immature Granulocytes % 0.3 %; Immature Granulocytes Absolute 0.02 #; Lymphocytes # 3.6 10*3/uL (1.4-4.0); Lymphocytes % 50.7 % (21.2-54.2); Mean Corpuscular HGB Conc 32.8 GM/DL (32-36); Mean Corpuscular Hemoglobin 30 PG (27-34); Mean Corpuscular Volume 89.9 FL (87-102); Mean Platelet Volume 11.7 FL (9.6-12.0); Monocytes # 0.4 10*3/uL (0.11-0.8); Monocytes % 5.5 % (1.7-12.7); NRBC # 0.02 10*3/uL; Neutrophils # 2.7 10*3/uL (1.4-7.4); Neutrophils % 37.9 % (38.7-73.9); Platelet Count 157 T/CUMM (130-400); Red Blood Count 3.97 MC/CUMM (3.8-5.5); Red Cell Distribution Width 16.1 % (9.3-17.3); White Blood Count 7.1 T/CUMM (4-12)
[2018-04-19 04:02] LABS: Osmolality,Calculated 284.1 MOS/KG (273-304); Potassium 3.7 MMOL/L (3.5-5.1)
[2018-04-19] MEDS: SODIUM CHLORIDE 0.9% 1,000 ML IV SCH (04:19)
[2018-04-19 04:28] LABS: Eosinophils 4 % (0-10); Lymphocytes 52 % (20-55); Platelet Estimate Normal; Segmented Neutrophils 40 % (50-85); Total Cells Counted 100
[2018-04-19 04:29] LABS: Atypical Lymphocytes Few; Hypochromasia 1+
[2018-04-19] MEDS: NYSTATIN 500,000 UNIT/5 ML UDCUP SWISH/SWAL SCH ×2 (08:26→20:22)
[2018-04-19] MEDS: LACTOBACILLUS ACIDOPHILUS/BULGARICUS CAPLET PO SCH (08:27)
[2018-04-19] MEDS: PANTOPRAZOLE 40 MG TABLET PO SCH ×2 (08:27→20:22)
[2018-04-19] MEDS: METOPROLOL TARTRATE 50 MG TABLET PO SCH (08:27)
[2018-04-19] MEDS: SUCRALFATE 1 GM TABLET PO SCH ×4 (08:27→20:24)
[2018-04-19] MEDS: FUROSEMIDE 40 MG/4 ML VIAL IV SCH (08:27)
[2018-04-19] MEDS: ONDANSETRON 4 MG/2 ML VIAL IV PRN ×2 (08:33→20:22)
[2018-04-19] MEDS ORDERED: MAGNESIUM SULF RIDER 2 GM in PREMIX 1 EACH IV PRN (10:18)
[2018-04-19] MEDS ORDERED: POTASSIUM CHLORIDE 20 MEQ TABLET PO PRN (10:18)
[2018-04-19] MEDS ORDERED: MAGNESIUM SULF RIDER 4 GM in PREMIX 1 EACH IV PRN (10:18)
[2018-04-19] MEDS: POTASSIUM CHLORIDE 20 MEQ TABLET PO SCH (12:00)
[2018-04-19] MEDS: MAGNESIUM CHLORIDE 64 MG TABLET PO SCH ×2 (12:00→20:22)
[2018-04-20] MEDS: HYDROmorphone 2 MG/1 ML VIAL IV PRN ×2 (00:32→08:06)
[2018-04-20 03:45] LABS: Basophils # 0.1 10*3/uL (0.0-0.2); Basophils % 1.1 % (0.0-0.8); Eosinophils # 0.2 10*3/uL (0.0-0.87); Eosinophils % 2.6 % (0.00-10.9); Hemoglobin 12.3 GM/DL (14.0-18.0); Immature Granulocytes % 0.3 %; Immature Granulocytes Absolute 0.02 #; Lymphocytes # 4.5 10*3/uL (1.4-4.0); Lymphocytes % 57.7 % (21.2-54.2); Mean Corpuscular HGB Conc 32.4 GM/DL (32-36); Mean Corpuscular Hemoglobin 29 PG (27-34); Mean Corpuscular Volume 88.8 FL (87-102); Mean Platelet Volume 12.4 FL (9.6-12.0); Monocytes # 0.4 10*3/uL (0.11-0.8); Monocytes % 5.5 % (1.7-12.7); Neutrophils # 2.6 10*3/uL (1.4-7.4); Neutrophils % 32.8 % (38.7-73.9); Platelet Count 180 T/CUMM (130-400); Red Blood Count 4.28 MC/CUMM (3.8-5.5); Red Cell Distribution Width 16.3 % (9.3-17.3); White Blood Count 7.8 T/CUMM (4-12)
[2018-04-20 04:09] LABS: Calcium 8.4 MG/DL (8.5-10.1); Osmolality,Calculated 280.4 MOS/KG (273-304); Potassium 3.5 MMOL/L (3.5-5.1)
[2018-04-20 04:12] LABS: Albumin 3.2 G/DL (3.4-5.0); Calcium 8.5 MG/DL (8.5-10.1); Osmolality,Calculated 279.4 MOS/KG (273-304); Potassium 3.7 MMOL/L (3.5-5.1)
[2018-04-20 04:29] LABS: Platelet Estimate Adequate; Polychromasia Few
[2018-04-20 07:53] VITALS: BP 100/81
[2018-04-20] MEDS: SUCRALFATE 1 GM TABLET PO SCH (08:05)
[2018-04-20] MEDS: POTASSIUM CHLORIDE 20 MEQ TABLET PO SCH (08:05)
[2018-04-20] MEDS: LACTOBACILLUS ACIDOPHILUS/BULGARICUS CAPLET PO SCH (08:05)
[2018-04-20] MEDS: NYSTATIN 500,000 UNIT/5 ML UDCUP SWISH/SWAL SCH (08:05)
[2018-04-20] MEDS: PANTOPRAZOLE 40 MG TABLET PO SCH (08:05)
[2018-04-20] MEDS: MAGNESIUM CHLORIDE 64 MG TABLET PO SCH (08:05)
[2018-04-20] MEDS: METOPROLOL TARTRATE 50 MG TABLET PO SCH (08:06)
[2018-04-20] MEDS: ONDANSETRON 4 MG/2 ML VIAL IV PRN (08:08)
[2018-04-20] MEDS ORDERED: FUROSEMIDE 40 MG TABLET PO SCH (09:00)
== END 2018-04-20 10:47 | disposition home or self-care (01) | DRG 194 ==
LOC: N.ED 10:36 → N.EDINP 13:42 → SUATTDRO 13:42 → N.2E 14:38
PROVIDERS: ADMIT Family Medicine; ATTEND Internal Medicine